=== PATIENT | female | born 1960 | race Caucasian/White ===

== ENCOUNTER → 2016-05-22 | Outpatient (CLI) | payer MEDICARE, OTHER ==
[~2016-05-22] MED LIST: ALBU8.5H3 IH; ALPR1TAB2 PO; ATOR20TA PO; AZEL6DRO OP; DEXT30TA2 PO; FURO-68 PO; HYDR-971 PO; MONT10TA6 PO; PARO30TA45 PO; POTA20TA82 PO; [UNRECOGNIZED DRUG - REMARK] PO; flonase; tylenol PO
--- NOTE | 2016-05-23 12:29 | RAD ---
DATE: 05/22/2016 EXAM: MAMMO ASAF SCREENING BILATERAL Bilateral digital screening mammography to include digital breast tomosynthesis (3D mammography) HISTORY: Screening study. COMPARISON: 05/21/2015 This study was interpreted with the benefit of Computerized Aided Detection (CAD). FINDINGS: Digital MLO and CC mammograms of both breasts were obtained. Additionally digital breast tomosynthesis (3D mammography) images of both breasts in the MLO and CC projections were performed. Comparison study is dated 05/21/2015. The breast parenchyma is composed of scattered fibroglandular densities which can obscure a lesion on mammography (breast density code B). No spiculated mass is seen. No malignant appearing calcification or area of architectural distortion is noted. Small intramammary lymph nodes are seen within the right breast, unchanged. Benign-appearing calcifications are seen within both breasts, unchanged. Digital breast tomosynthesis images demonstrate no spiculated mass or malignant appearing calcification. Since the previous examination there has been no significant interval change. IMPRESSION: BI-RADS Category 1, negative. There is no mammographic evidence of malignancy. Routine yearly screening mammography is recommended for follow-up. BI-RADS CATEGORY: 1 NEGATIVE RECOMMENDED FOLLOW-UP: 12M 12 MONTH FOLLOW-UP PQRS compliance statement: Patient information was entered into a reminder system with a target due date 05/22/2017 for the next mammogram. Mammography is a sensitive method for finding small breast cancers, but it does not detect them all and is not a substitute for careful clinical examination. A negative mammogram does not negate a clinically suspicious finding and should not result in delay in biopsying a clinically suspicious abnormality. "Our facility is accredited by the [employer] Mammography [employer]."
== END | disposition home or self-care (01) ==
LOC: MAMMO 12:49
PROVIDERS: ATTEND Family Medicine
DX: Z12.31 Encounter for screening mammogram for malignant neoplasm of breast (principal)
CPT/HCPCS: 77063; G0202; 77067

== ENCOUNTER → 2016-08-18 | Outpatient (CLI) | payer MEDICARE, OTHER ==
[~2016-08-18] MED LIST changes: -ALBU8.5H3 IH; +ALBU8.5H8 IH
--- NOTE | 2016-08-19 08:29 | RAD ---
Abdominal wall ultrasound 08/18/2016 at 1716 hours Indication: Right groin pain, history of hernia. Comparison: None available Technique: Sonographic imaging of the abdominal wall was performed utilizing calderon scale imaging. Findings: The abdominal wall is intact without evidence for direct or indirect hernia. No significant thickening or underlying fluid collection. Visualized vasculature appears normal. Impression: No evidence for abdominal wall hernia.
== END | disposition home or self-care (01) ==
LOC: US 13:33
PROVIDERS: ATTEND Family Medicine
DX: K46.9 Unspecified abdominal hernia without obstruction or gangrene (principal)
CPT/HCPCS: 76882

== ENCOUNTER → 2017-06-01 | Outpatient (CLI) | payer MEDICARE, OTHER ==
--- NOTE | 2017-06-01 13:59 | RAD ---
DATE: 06/01/2017 EXAM: MAMMO ASAF SCREENING BILATERAL HISTORY: Routine screening COMPARISON: 05/22/2016, 05/21/2015 This study was interpreted with the benefit of Computerized Aided Detection (CAD). The breast parenchyma shows scattered fibroglandular densities. Breast parenchyma level B. FINDINGS: 2-D and 3-D tomosynthesis imaging was performed in CC and MLO projections. A 9 mm lobulated nodule in the lateral aspect of the right breast is unchanged.This is probably an intramammary lymph node. No new or enlarging breast densities are seen. No architectural distortion is evident. Scattered microcalcifications present. A grouping of microcalcifications in the inferior aspect of the right breast appears to be unchanged favoring a benign etiology. IMPRESSION: Stable mammograms without evidence of malignancy. BI-RADS CATEGORY: 2 BENIGN FINDING(S) RECOMMENDED FOLLOW-UP: 12M 12 MONTH FOLLOW-UP PQRS compliance statement: Patient information was entered into a reminder system with a target due date for the next mammogram. Mammography is a sensitive method for finding small breast cancers, but it does not detect them all and is not a substitute for careful clinical examination. A negative mammogram does not negate a clinically suspicious finding and should not result in delay in biopsying a clinically suspicious abnormality. "Our facility is accredited by the [employer] Mammography [employer]."
== END | disposition home or self-care (01) ==
LOC: MAMMO 12:46
PROVIDERS: ATTEND Family Medicine
DX: Z12.31 Encounter for screening mammogram for malignant neoplasm of breast (principal)
CPT/HCPCS: 77063; 77067

== ENCOUNTER → 2018-06-02 | Outpatient (CLI) | payer OTHER ==
[~2018-06-02] MED LIST changes: +ALBU2.5V8 IH; -ALBU8.5H8 IH; +HYDR-3165 PO; -HYDR-971 PO
--- NOTE | 2018-06-02 14:55 | RAD ---
DATE: 06/02/2018 EXAM: MAMMO ASAF SCREENING BILATERAL HISTORY: Routine screening COMPARISON: 05/21/2015, 05/22/2016, 06/01/2017 mammographic exams This study was interpreted with the benefit of Computerized Aided Detection (CAD). Breast Density: SCATTERED The breast parenchyma shows scattered fibroglandular densities. Breast parenchyma level B. FINDINGS: No new masses or distortion. Benign minimal calcification. IMPRESSION: Stable BI-RADS CATEGORY: 1 NEGATIVE RECOMMENDED FOLLOW-UP: 12M 12 MONTH FOLLOW-UP PQRS compliance statement: Patient information was entered into a reminder system with a target due date in one year for the next mammogram. Mammography is a sensitive method for finding small breast cancers, but it does not detect them all and is not a substitute for careful clinical examination. A negative mammogram does not negate a clinically suspicious finding and should not result in delay in biopsying a clinically suspicious abnormality. "Our facility is accredited by the [employer] Mammography Program."
== END | disposition home or self-care (01) ==
LOC: MAMMO 08:37
PROVIDERS: ATTEND Family Medicine
DX: Z12.31 Encounter for screening mammogram for malignant neoplasm of breast (principal); R92.8 Other abnormal and inconclusive findings on diagnostic imaging of breast
CPT/HCPCS: 77063; 77067

== ENCOUNTER → 2019-09-06 | Outpatient (CLI) | payer OTHER ==
[~2019-09-06] MED LIST changes: -MONT10TA6 PO; +MONT10TA80 PO; +POTA20TA4 PO; -POTA20TA82 PO
[2019-09-06 09:37] LABS: BASO % 0 % (0-3); EOS # 0.3 x10^3/uL (0.0-0.7); EOS % 6 % (0-3); HEMATOCRIT 40.6 % (36.0-47.0); HEMOGLOBIN 13.9 g/dL (12.0-15.5); LYMPH # 1.4 x10^3/uL (1.0-4.8); LYMPH % 25 % (24-48); MEAN CORPUSCULAR HEMOGLOBIN 30 pg (25-35); MEAN CORPUSCULAR HGB CONC 34 g/dL (31-37); MEAN CORPUSCULAR VOLUME 87 fL (79-100); MONO # 0.3 x10^3/uL (0.0-1.1); MONO % 6 % (0-9); NEUT # 3.5 x10^3uL (1.8-7.7); NEUT % 63 % (31-73); PLATELET COUNT 306 x10^3/uL (140-400); RED BLOOD COUNT 4.64 x10^6/uL (3.50-5.40); RED CELL DISTRIBUTION WIDTH 12.9 % (11.5-14.5); WHITE BLOOD COUNT 5.5 x10^3/uL (4.0-11.0)
[2019-09-06 12:39] LABS: ALBUMIN 3.8 g/dL (3.4-5.0); ALBUMIN/GLOBULIN RATIO 1.1 (1.0-1.7); CREATININE 0.9 mg/dL (0.6-1.0); GFR 64.3; POTASSIUM 3.8 mmol/L (3.5-5.1); TOTAL BILIRUBIN 0.4 mg/dL (0.2-1.0); TOTAL PROTEIN 7.4 g/dL (6.4-8.2)
[2019-09-06 14:09] LABS: FREE T4 0.98 ng/dL (0.76-1.46); THYROID STIM HORMONE (TSH) 2.573 uIU/mL (0.358-3.740)
== END | disposition home or self-care (01) ==
LOC: LAB 08:45
PROVIDERS: ATTEND Physician Assistant Medical
DX: E61.1 Iron deficiency (principal); R60.9 Edema, unspecified; E55.9 Vitamin D deficiency, unspecified; E78.5 Hyperlipidemia, unspecified
CPT/HCPCS: 36415; 80053; 80061; 82306; 83540; 83550; 84439; 84443; 85025

== ENCOUNTER → 2019-11-15 | Outpatient (CLI) | payer OTHER ==
--- NOTE | 2019-11-15 14:15 | RAD ---
BILATERAL SCREENING MAMMOGRAM, 3-D History: Routine screening. Comparison: 05/08/2014, 05/21/2015, 05/22/2016, 06/01/2017, 06/02/2018. Technique: MLO and CC digital tomosynthesis (3D) images obtained. Radiologist reviewed these images on dedicated workstation. Findings: Breast Tissue Density B : There are scattered areas of fibroglandular density. Interval increase in size of a mass involving the right breast 6:00 region is present. This finding measures 0.6 in diameter. It is located 9.2 cm from nipple. Calcifications are present associated with it best seen on the CC projection. No distortion. IMPRESSION: A small right breast mass is present and has increased in size since recent previous exams. Calcification associated with the previous spot magnification imaging recommended. Right breast ultrasound is recommended for further assessment. No suspicious left breast findings in the interval. Stable left breast. BI-RADS Category 0: Incomplete: Need additional imaging evaluation. All The images were reviewed with computer-aided detection. Patient information is entered into reminder system with a target due date for the next screening mammogram. Mammography is the most sensitive method for finding small breast cancers, but it does not detect them all and is not a substitute for careful clinical examination. A negative mammogram does not negate a clinically suspicious finding and should not result in delay in biopsying a clinically suspicious abnormality. "Our facility is accredited by the [employer] Mammography [employer]." Electronically signed by: Israel Vee MD (11/15/2019 2:12 PM) [id number]
== END ==
LOC: MAMMO 10:35
PROVIDERS: ATTEND Physician Assistant Medical
DX: Z12.31 Encounter for screening mammogram for malignant neoplasm of breast (principal); N63.10 Unspecified lump in the right breast, unspecified quadrant
CPT/HCPCS: 77063; 77067

== ENCOUNTER → 2019-11-24 | Outpatient (CLI) | payer OTHER ==
--- NOTE | 2019-11-24 17:38 | RAD ---
Examination: 1. Right digital diagnostic mammogram 2. Limited right breast ultrasound. INDICATION: Screening recall for developing mass in the inferior right breast, associated with calcifications. COMPARISON: Bilateral mammogram of 11/15/2019. TECHNIQUE: A full field right ML view along with magnification views of the right breast in the CC and MLO projections were obtained. Thereafter, targeted ultrasound of the inferior right breast was performed FINDINGS: Scattered fibroglandular densities. Additional views of the right breast show that the calcifications identified associated with the mass in the inferior right breast layer on the true lateral view in a pattern consistent with benign milk of calcium. Targeted ultrasound of the right breast identifies at the 6:00 position 5 cm from the nipple is sonographically benign cyst measuring 5 mm that correlates in size, shape and position with the mammographic finding recalled from screening. IMPRESSION: Benign findings on right diagnostic mammogram and targeted breast ultrasound. No evidence of malignancy. Recommend patient return to routine mammographic screening next due in one year. BI-RADS Category 2 Benign findings Patient entered into a reminder system with targeted due date for next mammogram Electronically signed by: Tadeo Helms MD (11/24/2019 5:35 PM) [id number]
== END ==
LOC: MAMMO 12:48
PROVIDERS: ATTEND Physician Assistant Medical
DX: R92.2 Inconclusive mammogram (principal)
CPT/HCPCS: 76641; 77065